=== PATIENT | male | born 1935 | race Caucasian/White ===

== ENCOUNTER 2022-10-03 14:01 | Emergency (ER) | payer OTHER ==
[~2022-10-03] VITALS: Ht 165.1 cm; Wt 72.6 kg
[~2022-10-03 14:01] MED LIST: FINA5TAB1 PO; GABA300C PO; MECL-370 PO; PRAV40TA1 PO; TAMS0.4C96 PO
[2022-10-03 14:15] VITALS: BP 114/77; PULSE 86; RESP 16; TEMP 98; O2SAT 97
[2022-10-03 15:11] VITALS: O2SAT 97
--- NOTE | 2022-10-03 15:11 | NUR ---
86YO M BIBA FROM NURSING FACILITY TO PLACE UA CATH, PT ACCIDENTALLY PULLED CATH. NO OTHER COMPLAINTS. SAFETY MAINTAINED.
--- NOTE | 2022-10-03 16:16 | NUR ---
CATH INSERTED, PATENT, RESPONDED WELL TO PROCEDURE. DR TORRES AT BEDSIDE WITH US MACHINE TO CHECK PLACEMENT.
== END 2022-10-03 17:28 | disposition home or self-care (01) ==
LOC: MED 14:04
DX: T83.098A Other mechanical complication of other urinary catheter, initial encounter (principal); I10 Essential (primary) hypertension; E78.00 Pure hypercholesterolemia, unspecified; Y84.6 Urinary catheterization as the cause of abnormal reaction of the patient, or of later complication, without mention of misadventure at the time of the procedure
CPT/HCPCS: 51702; 99284